=== PATIENT | female | born 1945 | race Caucasian/White ===

== ENCOUNTER 2017-12-25 08:11 | Day surgery (SDC) | payer MEDICARE ==
[~2017-12-25 08:11] MED LIST: ACETAMINOPHEN 325 MG TAB PO; MIDAZOLAM INJ 2 MG/2 ML VIAL (J2250) As Ordered; PHENYLEPHRINE HCL 10 % OPHTH. SOL 5ML OD; PROPARACAINE 0.5% OPHTH SOL 15ML OD
[2017-12-25] MEDS: TROPICAMIDE 1% OPHTH SOLN 2ML OD (09:52)
[2017-12-25] MEDS: CYCLOPENTOLATE 2% OPHTH SOLN 2ML BTL OD (09:52)
[2017-12-25] MEDS: OFLOXACIN 0.3 % (OCUFLOX) OPTH SOL 5ML OD (09:52)
[2017-12-25] MEDS: PHENYLEPHRINE 2.5% OPHTH SOL 2ML OD (09:52)
[2017-12-25] MEDS: LIDOCAINE 3.5 % 1ML OPHTH TOPICAL GEL OU (09:53)
[2017-12-25] MEDS ORDERED: fentaNYL 100 MCG/2 ML INJECTION (J3010) As Ordered (11:07)
[2017-12-25] MEDS: POVIDONE-IODINE 5% OPHTH PREP SOL 30ML As Ordered (11:08)
[2017-12-25] MEDS: HEALON DUET (HEALON 10MG/ML 0.55ML & HEALON ENDOCOAT 30MG/ML 0.85ML) As Ordered (11:10)
[2017-12-25] MEDS: LIDOCAINE 1% SDV 5 ML VIAL As Ordered (11:11)
[2017-12-25] MEDS: BALANCED SALT IRRIGATION SOL 500ML GLASS BOTTLE (FOR OR EYE COMPOUND) As Ordered (11:11)
[2017-12-25] MEDS: KETOROLAC 0.5% OPHTH SOLN OD (11:45)
[2017-12-25] MEDS ORDERED: ONDANSETRON 4MG/2ML VIAL (J2405) IV (11:45)
[2017-12-25] MEDS ORDERED: TRIMETHOBENZAMIDE 300 MG CAP PO (11:45)
[2017-12-25] MEDS: AcetaZOLAMIDE 500 MG ER CAP PO (11:48)
== END 2017-12-25 12:06 | disposition home or self-care (01) ==
LOC: M SDC 08:11
DX: H25.11 Age-related nuclear cataract, right eye (principal); Z79.899 Other long term (current) drug therapy; Z88.0 Allergy status to penicillin
CPT/HCPCS: 66984